=== PATIENT | female | born 1985 | race Caucasian/White ===

== ENCOUNTER 2017-03-06 16:47 | Emergency (ER) | payer SELFPAY ==
[~2017-03-06] VITALS: Ht 152.4 cm; Wt 79.0 kg
[2017-03-06 16:48] VITALS: Ht 152.4 cm; Wt 79.0 kg
[2017-03-06] MEDS ORDERED: ACETAMINOPHEN 500 MG TAB PO STA (17:29)
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
[2017-03-06] MEDS ORDERED: ACET500C5 PO (18:57)
[2017-03-06] MEDS ORDERED: BACL10TA PO (19:29)
== END 2017-03-06 19:46 | disposition home or self-care (01) ==
LOC: FTE 16:47
DX: S19.9XXA Unspecified injury of neck, initial encounter (principal); S49.91XA Unspecified injury of right shoulder and upper arm, initial encounter; V49.40XA Driver injured in collision with unspecified motor vehicles in traffic accident, initial encounter
CPT/HCPCS: 72040